=== PATIENT | male | born 1970 | race Caucasian/White ===

== ENCOUNTER 2017-01-02 20:44 | Emergency (ER) | payer OTHER ==
[~2017-01-02] VITALS: Ht 177.8 cm; Wt 59.0 kg
[2017-01-02] MEDS ORDERED: KEPPRA500 MG ORAL (20:52)
[2017-01-02 21:12] VITALS: BP 123/75
[2017-01-02 21:41] VITALS: BP 123/75
--- NOTE | 2017-01-04 07:20 | Emergency Room Report ---
History of Present Illness General Chief Complaint: Medical Clearance Source: Patient Present Illness HPI Patient's 46-year-old male brought in by [facility] for medical clearance. Patient had a reported history of seizure disorder but had not had any recent seizures. Patient was reportedly off of his medications. Patient denied any current locations of skin lesions. Patient had no recent fever. He denies other complaints. Allergies: Coded Allergies: No Known Allergies (Unverified , 01/02/17) Patient History Reviewed Nursing Documentation: PMH: Agreed, PSxH: Agreed Nursing Documentation-PMH Hx Seizures: Yes Review of Systems All Other Systems: negative except mentioned in HPI Physical Exam Vital Signs Date Time Temp Pulse Resp B/P Pulse Ox O2 Delivery O2 Flow Rate FiO2 01/02/17 20:58 97.5 77 16 123/75 97 Room Air Sp02 EP Interpretation: reviewed, normal General Appearance: normal inspection, well appearing, no apparent distress, alert, GCS 15, non-toxic Head: atraumatic ENT: normal ENT inspection, hearing grossly normal, normal voice Neck: normal inspection, full range of motion, supple, no bony tend Respiratory: normal inspection, lungs clear, normal breath sounds, no respiratory distress, no retraction, no wheezing Cardiovascular #1: regular rate, rhythm, no edema Gastrointestinal: normal inspection, normal bowel sounds, non tender, soft, no guarding, no hernia Genitourinary: no CVA tenderness Musculoskeletal: normal inspection, back normal, normal range of motion Neurologic: normal inspection, alert, oriented x3, responsive, patient account liaison III-XII nml as tested, speech normal Psychiatric: normal inspection, judgement/insight normal, mood/affect normal Skin: normal inspection, normal color, no rash Medical Decision Making Diagnostic Impression: Primary Impression: Seizure ER Course Patient presented for medical clearance. Differential diagnosis included was not limited to subtherapeutic level, medication noncompliance, malingering among others. Patient's benign exam and does not appear to require any further imaging or laboratory testing at this time. The patient is not taking any seizure medications which require a level measurement. The patient was given oral Keppra. Patient given prescription for Keppra and is medically cleared for skilled nursing placement. At the time of discharge patient was awake and alert and oriented. He was ambulatory without assistance. Last Vital Signs Date Time Temp Pulse Resp B/P Pulse Ox O2 Delivery O2 Flow Rate FiO2 01/02/17 21:41 77 16 123/75 97 Room Air 01/02/17 21:12 97.7 Status: improved Disposition: D/C TO [facility] ENFORCEMENT IN [facility] Condition: Stable Scripts Levetiracetam (Keppra) 250 Mg Tablet 500 MG ORAL EVERY 12 HOURS, #50 TAB 0 Refills Prov: Tomas Kennedy 01/02/17 Referrals: NOT CHOSEN [facility]/MD,REFERRING (PCP) Departure Forms: Detention Clearance Patient Instructions: Seizure, Adult Tomas Kennedy Jan 04, 2017 07:20
== END 2017-01-02 21:10 ==
LOC: EMR 20:58
DX: R56.9 Unspecified convulsions (principal)
CPT/HCPCS: 80299; 99283